=== PATIENT | female | born 2000 | race Caucasian/White ===

== ENCOUNTER 2022-06-02 11:34 | Emergency (ER) | payer OTHER, SELFPAY ==
[2022-06-02 11:44] VITALS: BP 108/70; PULSE 99; RESP 16; TEMP 36.4; O2SAT 99
--- NOTE | 2022-06-02 12:43 | ED.URI ---
HPI - URI/Sore Throat General Chief Complaint: Upper Respiratory Infection Stated Complaint: Sore Throat/Headache Time Seen by Provider: 06/02/22 12:43 Source: patient, RN notes reviewed and old records reviewed Mode of arrival: ambulatory Limitations: no limitations History of Present Illness HPI Narrative: 22 year old female who presents to [facility] accompanied by mother with complaints of sore throat, nasal drainage and congestion, headache, and left earache which started this morning. Patient has not taken any medication for her symptoms. Patient reports no known ill contacts. MD elicited complaint: sore throat, rhinorrhea, nasal congestion and other (left earache and headache) Pertinent past history: asthma Onset (ago): hour(s) (this morning) Pain scale (0-10): 2 Treatments prior to arrival: none Related Data Home Medications Medication Instructions Recorded Confirmed norgestimate 0.25 mg-ethinyl 1 tablet PO DAILY 07/10/20 estradiol 35 mcg tablet (Sprintec (28)) epinephrine 0.3 mg/0.3 mL 0.3 mg IM ONCE 09/13/20 injection, auto-injector Allergies Allergy/AdvReac Type Severity Reaction Status Date / Time shellfish derived Allergy Severe shock Verified 09/13/20 14:13 lemon Allergy Mild Hives / Verified 09/13/20 14:13 Red Face Review of Systems Review of Systems: CONSTITUTIONAL: Denies malaise, chills, sweats, or fever. EYES: Denies visual changes, redness, or discharge. ENT: Reports rhinorrhea, congestion, no sinus pain, left otalgia and sore throat. CARDIOVASCULAR: Denies chest pain, palpitations, or edema. RESPIRATORY: Reports no cough.? Denies dyspnea. GASTROINTESTINAL: Denies abdominal pain, nausea, vomiting, diarrhea SKIN: Denies rash or itching. MUSCULOSKELETAL: Denies myalgia. NEUROLOGIC: Reports headache. All systems reviewed & are unremarkable except as noted in HPI and below PMFSH Past Medical History Medical History (Updated 06/03/22 @ 10:52 by Sneha Prince NP) Asthma Celiac disease Surgical History Surgical History H/O laparoscopy Family History Family History Father Hypertension Mother Leukemia Hypertension Depression Sibling Asthma Hypertension Depression Grandparent Skin cancer Diabetes mellitus Social History Social History Smoking status: Never smoker Alcohol intake: never Substance use: never Living arrangements: with family Gender identity (if verbalized by the patient): Female Comments At time of signature, agree with nursing past medical, surgical, social and family history. There is no relevant family history pertinent to the presenting complaint Exam Narrative: GENERAL: Well-appearing, well-nourished, and in no acute distress. HEAD: Normocephalic EYES: PERRLA, conjunctivae clear ENT: Nares clear, turbinates edematous and erythematous, clear discharge. Mucous membranes moist.Left TM red and bulging, Right TM pearly may with dull light reflex; no tragal tenderness. Oropharynx erythematous without lesions. Tonsils red minimally enlarged and without exudate, no drooling, no hoarseness, no trismus, uvula midline. NECK: Supple. No lymphadenopathy CHEST: Clear to auscultation, breath sounds equal. No wheezing, rhonchi, rales, or stridor. No respiratory distress, speaks in full sentences.SAO2 99% on room air HEART: Regular rate and rhythm. No murmur heard. SKIN: Warm, dry, no rash. NEURO: Alert and oriented x3. PSYCH: Normal mood and affect Course Course Emergency Course: Patient is aware of diagnosis, understands and agrees to treatment plan.? Anticipatory guidance given.? Patient agrees to follow-up as directed and is aware of reasons to seek care at the emergency department. Portions of this record may have been created
== END 2022-06-02 13:02 | disposition home or self-care (01) ==
PROVIDERS: Emergency Provider Registered Nurse; PCP Family Medicine
DX: H66.92 Otitis media, unspecified, left ear (principal); J06.9 Acute upper respiratory infection, unspecified; J45.909 Unspecified asthma, uncomplicated
CPT/HCPCS: 87081; 87880; 99213; G0463

== ENCOUNTER 2022-06-22 18:16 | Emergency (ER) | payer OTHER, SELFPAY ==
--- NOTE | 2022-06-22 18:19 | ED.URI ---
HPI - URI/Sore Throat General Chief Complaint: Upper Respiratory Infection Stated Complaint: cold Time Seen by Provider: 06/22/22 18:26 Source: patient and RN notes reviewed Mode of arrival: ambulatory Limitations: no limitations History of Present Illness HPI Narrative: 22-year-old female presents with concern for 3 week history of sinus congestion, sinus pain, reports some bloody sinus discharge. She reports sore throat. She reports she has been taking Sudafed without relief. MD elicited complaint: sore throat, nasal congestion and sinus pain Related Data Home Medications Medication Instructions Recorded Confirmed norgestimate 0.25 mg-ethinyl 1 tablet PO DAILY 07/10/20 estradiol 35 mcg tablet (Sprintec (28)) epinephrine 0.3 mg/0.3 mL 0.3 mg IM ONCE 09/13/20 injection, auto-injector Allergies Allergy/AdvReac Type Severity Reaction Status Date / Time shellfish derived Allergy Severe shock Verified 09/13/20 14:13 lemon Allergy Mild Hives / Verified 09/13/20 14:13 Red Face Review of Systems Review of Systems: CONSTITUTIONAL: Reports malaise. Denies chills, sweats, or fever. EYES: Denies visual changes, redness, or discharge. ENT: Reports rhinorrhea, congestion, sinus pain, and sore throat. CARDIOVASCULAR: Denies chest pain, palpitations, or edema. RESPIRATORY: Denies cough. Denies dyspnea. GASTROINTESTINAL: Denies abdominal pain, nausea, vomiting, diarrhea SKIN: Denies rash or itching. MUSCULOSKELETAL: Denies myalgia. NEUROLOGIC: Denies headache. All systems reviewed & are unremarkable except as noted in HPI and below PMFSH Past Medical History Medical History (Updated 06/22/22 @ 18:33 by Carmita Bergman NP) Asthma Celiac disease Surgical History Surgical History H/O laparoscopy Family History Family History Father Hypertension Mother Leukemia Hypertension Depression Sibling Asthma Hypertension Depression Grandparent Skin cancer Diabetes mellitus Social History Social History Smoking status: Never smoker Alcohol intake: never Substance use: never Living arrangements: with family Gender identity (if verbalized by the patient): Female Comments At time of signature, agree with nursing past medical, surgical, social and family history. There is no relevant family history pertinent to the presenting complaint Exam Narrative: GENERAL: Well-appearing, well-nourished, and in no acute distress. HEAD: Normocephalic EYES: PERRLA, conjunctivae clear ENT: Nares clear, turbinates edematous and erythematous, sinus tenderness. Mucous membranes moist. TM pearly may with dull light reflex bilaterally; no tragal tenderness. Oropharynx erythematous without lesions. Tonsils not enlarged and without exudate, no drooling, no hoarseness, no trismus, uvula midline. NECK: Supple. No lymphadenopathy CHEST: Clear to auscultation, breath sounds equal. No wheezing, rhonchi, rales, or stridor. No respiratory distress, speaks in full sentences. HEART: Regular rate and rhythm. No murmur heard. SKIN: Warm, dry, no rash. NEURO: Alert and oriented x3. PSYCH: Normal mood and affect Course Course Emergency Course: Patient is aware of diagnosis, understands and agrees to treatment plan. Anticipatory guidance given. Patient agrees to follow-up as directed and is aware of reasons to seek care at the emergency department. Portions of this record may have been created with voice recognition software Level of Care: Express Care Visit Vital Signs Vital signs: Reviewed. MDM - URI/Sore Throat MDM Narrative Medical decision making narrative: Differential diagnosis considered: Noonan virus, strep pharyngitis, allergic rhinitis, upper respiratory tract infection, sinusitis, rhinosinusitis, nasopharyngitis. viral pharyngi
[2022-06-22 18:28] VITALS: BP 111/68; PULSE 73; RESP 16; TEMP 37.1; O2SAT 100
== END 2022-06-22 18:37 | disposition home or self-care (01) ==
PROVIDERS: Emergency Provider Nurse Practitioner; PCP Family Medicine
DX: J01.90 Acute sinusitis, unspecified (principal); J45.909 Unspecified asthma, uncomplicated; K90.0 Celiac disease
CPT/HCPCS: 99213; G0463

== ENCOUNTER 2024-01-05 21:59 | Observation (INO) | payer OTHER, SELFPAY ==
--- NOTE | 2024-01-06 02:07 | OBADM ---
This patient, Liana Clarke, admitted to the OB room Labor/Delivery/Recovery 106 for observation. Patient/family oriented to hospital policies and general routines including ID bracelet, bed and alarms, visiting hours, pain management, procedures, bathroom and other care routines, personal items, smoking policy, room service/diet, and visiting hours. Patient/Family are encouraged to report perceived risks to care and to ask questions if they do not understand what they are told or what they should do.
--- NOTE | 2024-01-07 12:01 | PM.OBTRLD ---
OB - Triage/Final Diagnosis Visit Information Comments/Additional reasons for admission: I have assessed the risk for this patient, Liana Clarke, and determined that she would benefit from observation care. Final Diagnosis (1) False labor: Code(s): O47.9 - False labor, unspecified Status: Acute
== END 2024-01-06 02:01 | disposition home or self-care (01) ==
PROVIDERS: Admitting Provider Obstetrics & Gynecology; PCP Family Medicine; Visit Provider Obstetrics & Gynecology
DX: O47.9 False labor, unspecified (principal); Z3A.00 Weeks of gestation of pregnancy not specified
CPT/HCPCS: G0378; G0379

== ENCOUNTER 2024-01-06 21:51 | Inpatient (IN) | payer OTHER, SELFPAY ==
[2024-01-06] VITALS (25 sets, daily range): BP systolic 123–154; BP diastolic 68–92; PULSE 83–111; TEMP 36.9–37.3; O2SAT 96–99; BMI 32.9
[2024-01-06 22:48] LABS: Basophils Percent Auto 0.2 % (0.2-1.2); Eosinophils Percent Auto 0.2 % (0-4.4); Hematocrit 31.1 % (37.0-47.0); Hemoglobin 10.2 g/dL (12.0-15.0); Immature Granulocyte Absolute 0.07 K/mm3 (0.00-0.031); Immature Granulocyte Percent A 0.5 % (0-0.5); Lymphocytes Absolute Auto 1.64 K/mm3 (0.9-3.2); Lymphocytes Percent Auto 12.5 % (18.3-44.2); Mean Corpuscular HGB Conc 32.8 g/dl (32-36); Mean Corpuscular Hemoglobin 26.8 pg (26-34); Mean Corpuscular Volume 81.6 fl (80-100); Mean Platelet Volume 12.4 fl (7.4-10.4); Monocytes Absolute Auto 0.6 K/mm3 (0.1-0.6); Monocytes Percent Auto 4.2 % (2.6-8.5); Neutrophils Absolute Auto 10.8 K/mm3 (1.3-6.7); Neutrophils Percent Auto 82.4 % (45.5-73.1); Platelet Count Result 341 k/mm3 (150-375); Red Blood Count 3.81 M/mm3 (4.2-5.4); Red Cell Distribution Width 14.8 % (11.5-14.5); White Blood Count 13.1 K/mm3 (4.5-10.0)
--- NOTE | 2024-01-06 22:48 | LDADM ---
This patient, Liana Clarke, was admitted to Labor/Delivery/Recovery 105 on 01/06/24 at 21:51. Plans for labor, pain management and were discussed with patient. Patient/family oriented to hospital policies and general routines including ID bracelet, bed and alarms, visiting hours, pain management, procedures, bathroom and other care routines, personal items, smoking policy, room service/diet and guest tray routines, security routines, and visiting hours. Patient/Family are encouraged to report perceived risks to care and to ask questions if they do not understand what they are told or what they should do. See OBIX for further documentation.
[2024-01-06] MEDS: LACTATED RINGERS 1,000 ML 125 ML IV CONT ×2 (23:00→23:25)
--- NOTE | 2024-01-06 23:05 | WPDANESEPP ---
Anes - Eval Pre Procedure Procedure: labor epidural Date/Time: 01/06/24 23:05 Surgeon: garcia Preop Diagnosis: pain during labor Pre Op Diagnosis: Contractions Patient Data Age: 23 Gender: F Height: 1.63 m Weight: 87 kg Last Vital Signs O2 Del Method Room Air 01/06/24 22:47 Allergies Allergy/AdvReac Type Severity Reaction Status Date / Time shellfish derived Allergy Severe shock Verified 01/06/24 22:55 lemon Allergy Mild Hives / Verified 01/06/24 22:55 Red Face Home Medications Medication Instructions Recorded Confirmed Type norgestimate 0.25 mg-ethinyl 1 tablet PO DAILY 07/10/20 History estradiol 35 mcg tablet (Sprintec (28)) epinephrine 0.3 mg/0.3 mL 0.3 mg IM ONCE 09/13/20 01/06/24 History injection, auto-injector amoxicillin 875 mg-potassium 1 tablet PO Q12H 10 days #20 tabs 06/22/22 Rx clavulanate 125 mg tablet methylprednisolone 4 mg tablets in See Rx Instructions PO .COMPLEX 06/22/22 01/06/24 Rx a dose pack (Medrol (David)) #21 ea Laboratory Tests 01/06/24 22:42 WBC 13.1 H K/mm3 (4.5-10.0) RBC 3.81 L M/mm3 (4.2-5.4) Hgb 10.2 L g/dL (12.0-15.0) Hct 31.1 L % (37.0-47.0) MCV 81.6 fl (80-100) MCH 26.8 pg (26-34) MCHC 32.8 g/dl (32-36) RDW 14.8 H % (11.5-14.5) Plt Count 341 k/mm3 (150-375) MPV 12.4 H fl (7.4-10.4) Immature Gran % (Auto) 0.5 % (0-0.5) Neut % (Auto) 82.4 H % (45.5-73.1) Lymph % (Auto) 12.5 L % (18.3-44.2) [place] % (Auto) 4.2 % (2.6-8.5) Eos % (Auto) 0.2 % (0-4.4) Baso % (Auto) 0.2 % (0.2-1.2) Lymph # (Auto) 1.64 K/mm3 (0.9-3.2) [place] # (Auto) 0.6 K/mm3 (0.1-0.6) Eos # (Auto) 0.0 K/mm3 (0-0.3) Baso # (Auto) 0.0 K/mm3 (0.0-0.1) Abs Immat Gran (auto) 0.07 H K/mm3 (0.00-0.031) Absolute Neuts (auto) 10.8 H K/mm3 (1.3-6.7) Absolute Nucleated RBC 0.000 K/mm3 (0.0-0.012) Nucleated RBC % 0.0 % (0.0-0.2) RPR Pending HIV 1&2 Ab/P24 Ag 4thGn Pending Blood Type Pending Antibody Screen Pending Patient hx anesthesia problems: none Family hx anesthesia problems: none Results Review: All pre-operative results and documents have been reviewed as part of the pre-operative evaluation. FOR[facility], [facility] Past Medical History Medical History (Updated 06/23/22 @ 00:00 by Pretty Olmstead) Asthma Celiac disease Surgical History Surgical History H/O laparoscopy Family History Family History Father Hypertension Mother Leukemia Hypertension Depression Sibling Asthma Hypertension Depression Grandparent Skin cancer Diabetes mellitus Social History Social History Smoking status: Never smoker Alcohol intake: never Substance use: never Do You Feel Safe in your Home?: Yes Lack of Transportation: No Lack of Food: Never True Current Housing: I Have Housing Concerned About Future Housing: No Difficulty Paying Gas/Electric Bills: No Difficulty Paying for Meds: No Currently Unemployed: No Education: Bachelor's Degree Difficulty w/ Childcare or Family Care: No Living arrangements: with family Gender identity (if verbalized by the patient): Female Spiritual care concerns: No Exam Day of Procedure 01/06/24 23:05
[2024-01-06 23:37] LABS: Rapid Plasma Reagin Non-Reactive (NonReactive)
[2024-01-06 23:41] LABS: HIV 1/2 Ab P24 Ag Result Negative (Negative)
[2024-01-07] VITALS (211 sets, daily range): BP systolic 89–155; BP diastolic 53–99; PULSE 73–125; RESP 16–18; TEMP 36.1–36.8; O2SAT 94–100
--- NOTE | 2024-01-07 05:46 | PC.NURSE ---
See paper charting for MAR during meditech downtime
--- NOTE | 2024-01-07 06:42 | PM.IMHP ---
H&P: HPI History of Present Illness Date/Time: 01/07/24 06:42 Chief Complaint: Labor at term Narrative: 23 year left suprasellar known but EDC is 01/12/2024 for 10 ultrasound at 30 weeks gestation in active she spontaneously ruptured 5 3rd and is presently a rim. she is negative for group B strep in her has been uncomplicated PMFSH Past Medical History Medical History Asthma Celiac disease Surgical History Surgical History H/O laparoscopy Family History Family History Father Hypertension Mother Leukemia Hypertension Depression Sibling Asthma Hypertension Depression Grandparent Skin cancer Diabetes mellitus Social History Social History Smoking status: Never smoker Alcohol intake: never Substance use: never Do You Feel Safe in your Home?: Yes Lack of Transportation: No Lack of Food: Never True Current Housing: I Have Housing Concerned About Future Housing: No Difficulty Paying Gas/Electric Bills: No Difficulty Paying for Meds: No Currently Unemployed: No Education: Bachelor's Degree Difficulty w/ Childcare or Family Care: No Living arrangements: with family Gender identity (if verbalized by the patient): Female Spiritual care concerns: No Meds Home Medications and Allergies Home Medications Medication Instructions Recorded Confirmed Type norgestimate 0.25 mg-ethinyl 1 tablet PO DAILY 07/10/20 History estradiol 35 mcg tablet (Sprintec (28)) epinephrine 0.3 mg/0.3 mL 0.3 mg IM ONCE 09/13/20 01/06/24 History injection, auto-injector amoxicillin 875 mg-potassium 1 tablet PO Q12H 10 days #20 tabs 06/22/22 Rx clavulanate 125 mg tablet methylprednisolone 4 mg tablets in See Rx Instructions PO .COMPLEX 06/22/22 01/06/24 Rx a dose pack (Medrol (David)) #21 ea Allergies Allergy/AdvReac Type Severity Reaction Status Date / Time shellfish derived Allergy Severe shock Verified 01/06/24 22:55 lemon Allergy Mild Hives / Verified 01/06/24 22:55 Red Face Vital Signs Vital Signs - 24 hr 01/06/24 22:47 01/06/24 23:10 01/06/24 23:12 Temperature Pulse Rate 97 102 H Respiratory Rate Blood Pressure 129/82 129/83 Pulse Oximetry 96 Oxygen Delivery Room Air 01/06/24 23:14 01/06/24 23:15 01/06/24 23:17 Temperature Pulse Rate 111 H 90 Respiratory Rate Blood Pressure 130/92 H 123/77 Pulse Oximetry 97 Oxygen Delivery 01/06/24 23:20 01/06/24 23:22 01/06/24 23:23 Temperature Pulse Rate 87 84 Respiratory Rate Blood Pressure 137/89 136/82 Pulse Oximetry 97 Oxygen Delivery 01/06/24 23:24 01/06/24 23:25 01/06/24 23:27 Temperature 98.5 F Pulse Rate 99 100 Respiratory Rate Blood Pressure 139/87 131/83 Pulse Oximetry 96 Oxygen Delivery 01/06/24 22:07 01/06/24 23:30 01/06/24 23:31 Temperature 99.2 F Pulse Rate 100 Respiratory Rate Blood Pressure 138/68 Pulse Oximetry 96 98 Oxygen Delivery 01/06/24 23:32 01/06/24 23:34 01/06/24 23:36 Temperature Pulse Rate 102 H 92 Respiratory Rate Blood Pressure 136/84 137/85 Pulse Oximetry 98 Oxygen Delivery 01/06/24 23:37 01/06/24 23:40 01/06/24 23:41 Temperature Pulse Rate 96 95 Respiratory Rate Blood Pressure 154/87 H 133/85 Pulse Oximetry 99 Oxygen Delivery 01/06/24 23:42 01/06/24 23:44 01/06/24 23:46 Temperature Pulse Rate 92 89 Respiratory Rate Blood Pressure 136/82 143/91 H Pulse Oximetry 98 Oxygen Delivery 01/06/24 23:51 01/06/24 23:56 01/07/24 00:00 Temperature Pulse Rate 99 Respiratory Rate Blood Pressure 123/83 Pulse Oximetry 98 98 Oxygen Delivery 01/07/24 00:01 01/07/24 00:06 01/06
[2024-01-07] MEDS: ONDANSETRON INJ 4 MG/2 ML VIAL IV PUSH (10:05)
--- NOTE | 2024-01-07 10:26 | PM.OBPNLAB ---
Pain Control Date/time seen: 01/07/24 10:26 Pain control: tolerating well and epidural Pelvic Exam Dilation (cm): 10 station: 0 Amniotic membrane status: Leaking
[2024-01-07] MEDS: LACTATED RINGERS 1,000 ML 125 ML IV CONT (11:34)
[2024-01-07] MEDS: fentaNYL CITRATE INJ (*CRX) 100 MCG/2 ML VIAL 50 MCG IV PUSH (11:34)
[2024-01-07] MEDS: LIDOCAINE HCL 1% LOCAL INJ 20 ML VIAL (12:23)
[2024-01-07] MEDS: OXYTOCIN 30 UNITS/NS 500 ML 30 UNITS/500 ML BAG 125 UNITS IV CONT (13:00)
--- NOTE | 2024-01-07 13:10 | P.PCNOB_ITS ---
OB - Vaginal Delivery Note Procedure Delivery date: 01/07/24 Induction method: None Delivery monitor: External FHT and External Uterine Route of delivery: Episiotomy description: None Laceration Description: Perineal - 2nd Degree Delivery repair: vicryl Quantitative Blood Loss (ml): 61 Anesthesia type: Local Disposition: Floor Complications: No immediate complications Narrative: patient was admitted in active labor about 2200 hours on 01/06 24. She spontaneously ruptured in the a.m.. She progressive the number for stage of labor her epidural was not working well she delivered the head spontaneously in the VITALY position the anterior posterior shoulder delivered quickly. Cord clamped x2 and cut the infant given Apgars of 9 and 9. Placenta delivered intact spontaneously. Twenty of Pitocin placed IV of from uterus after speculum sidewall small second-degree midline laceration was noted closed with layered 3- 0 Vicryl Q BL was was 61cc. Mom and baby are doing fine at the time dictation. There were no immediate complications [place] Baby Date of : 01/07/24 Time of : 12:17 Gestational Age by Date: 39 Infant gender: Male presentation: vertex position: Right Occiput Anterior Placenta delivery description: Spontaneous Cord Vessel Description: 3 Vessels score one minute: 9 score five minutes: 9
--- NOTE | 2024-01-07 13:13 | PM.DS ---
DS: Admitting Diagnosis Discharge Date 01/09/24 <Yeimy Garcia MD - Last Filed: 01/09/24 09:44> Admitting Diagnosis term <Hussain Gold MD - Last Filed: 01/07/24 13:15> DS: Discharge Diagnosis Discharge Diagnosis (1) False labor: Code(s): O47.9 - False labor, unspecified <Hussain Gold MD - Last Filed: 01/07/24 13:15> Status: Acute <Hussain Gold MD - Last Filed: 01/07/24 13:15> DS: Summary Hospital Course Reason for hospitalization: patient was admitted in active labor on 01/06/2024 [id number] she spontaneously delivered male at 12:17 p.m. p.m. on 01/07/2024. <Hussain Gold MD - Last Filed: 01/07/24 13:15> Hospital Course: Patient's hospital course. She remained afebrile. She was up, voiding without difficulty, eating regular diet, ambulating, and generally without complaints. <Hussain Gold MD - Last Filed: 01/07/24 13:15> Time Spent with Patient Time attestation: Total time spent providing and/or coordinating discharge services: <Hussain Gold MD - Last Filed: 01/07/24 13:15> Exam Const: General: cooperative, healthy appearing and comfortable <Hussain Gold MD - Last Filed: 01/07/24 13:15> Nutritional Appearance: average body habitus <Hussain Gold MD - Last Filed: 01/07/24 13:15> Orientation/consciousness: oriented to person, oriented to place and oriented to time <Hussain Gold MD - Last Filed: 01/07/24 13:15> HENMT: Head: normal to inspection <Hussain Gold MD - Last Filed: 01/07/24 13:15> Resp: Effort & Inspection: normal respiratory effort <Hussain Gold MD - Last Filed: 01/07/24 13:15> Cardio: Rate: regular rate <Hussain Gold MD - Last Filed: 01/07/24 13:15> Rhythm: regular rhythm <Hussain Gold MD - Last Filed: 01/07/24 13:15> Heart sounds: S1 normal heart sound present and S2 normal heart sound present <Hussain Gold MD - Last Filed: 01/07/24 13:15> GI: Inspection: normal to inspection <Hussain Gold MD - Last Filed: 01/07/24 13:15> DS: Data Data Completed and Pending Labs on day of discharge: Labs from last 24 hours 01/06/24 22:42 WBC 13.1 H RBC 3.81 L Hgb 10.2 L Hct 31.1 L MCV 81.6 MCH 26.8 MCHC 32.8 RDW 14.8 H Plt Count 341 MPV 12.4 H Immature Gran % (Auto) 0.5 Neut % (Auto) 82.4 H Lymph % (Auto) 12.5 L [place] % (Auto) 4.2 Eos % (Auto) 0.2 Baso % (Auto) 0.2 Lymph # (Auto) 1.64 [place] # (Auto) 0.6 Eos # (Auto) 0.0 Baso # (Auto) 0.0 Abs Immat Gran (auto) 0.07 H Absolute Neuts (auto) 10.8 H Absolute Nucleated RBC 0.000 Nucleated RBC % 0.0 RPR Non-reactive HIV 1&2 Ab/P24 Ag 4thGn Negative Blood Type A Positive Antibody Screen Negative <Hussain Gold MD - Last Filed: 01/07/24 13:15> Discharge Plan Discharge Attending physician on discharge: Hussain Phillips <Hussain Gold MD - Last Filed: 01/07/24 13:15> Hussain Phillips <Yeimy Garcia MD - Last Filed: 01/09/24 09:44> Discharging Clinician: Yeimy Garcia <Hussain Gold MD - Last Filed: 01/07/24 13:15> Yeimy Garcia <Yeimy Garcia MD - Last Filed: 01/09/24 09:44> Patient Disposition: Home, Self-Care <Hussain Gold MD - Last Filed: 01/07/24 13:15> Activity: may shower, no straining and pelvic rest <Hussain Gold MD - Last Filed: 01/07/24 13:15> may shower, no straining and pelvic rest <Yeimy Garcia MD - Last Filed: 01/09/24 09:44> Diet: heart healthy <Hussain Gold MD - Last Filed: 01/07/24 13:15> heart healthy <Yeimy Garcia MD - Last Filed: 01/09/24 09:44> Wound Care Instructions: follow printed instructions <Hussain Gold MD - Last Filed: 01/07/24 13:15> follow printed instructions <Yeimy
--- NOTE | 2024-01-07 13:30 | PC.NURSE ---
Introductions were made, then consulted with patient to assess needs related to . Mother led the conversation with her?plans to feed?her infant and the?experience so far. In her own words, Liana isn't bound and determined to breastfeed. Mom's nipples are flat and her breast tissue is very firm and hard to make into a bite for baby. Encouraged understanding of holding her breast so baby can maintain the latch. We also discussed possible need for the nipple shield if baby isn't able to maintain latch at the next few feedings. Mother knows she has the option to use the shield and that it may make easier for her, but that we would recommend pumping with the use of the shield. Mom also knows that if she tries the shield and decides it's not for her, she can tell us any time and we can make a new plan. Reviewed positioning and ear, shoulder, hip alignment, supporting the breast to facilitate a deep latch, asymmetrical latch (off-center), leading with the chin with a big, open, wide gape and body close to mother. Infant latched optimally to the [left] breast in [cross cradle] position. Infant was [unable] to maintain latch without losing suction. He suckled off and on with maximum assistance for 5 minutes or so. Discussed with mom to ask for assistance with next feeding so we know if she wants to try the shield or not. Parents voiced understanding of information, demonstrated learning and will call if there is a request for assistance. Reported to the Primary RN.
[2024-01-07] MEDS: WITCH HAZEL 40 PADS 1 PAD TOPICAL (14:05)
[2024-01-07] MEDS: BENZOCAINE 20% AER SPR (*SP) 56 GM CAN 1 SPRAY TOPICAL (14:05)
[2024-01-07] MEDS: ACETAMINOPHEN 325 MG TABLET 650 MG PO (19:50)
[2024-01-08 04:18] LABS: Hematocrit 23.1 % (37.0-47.0); Hemoglobin 7.5 g/dL (12.0-15.0)
[2024-01-08 04:40] VITALS: BP 103/66; PULSE 84; RESP 18; TEMP 36.5
[2024-01-08] MEDS: IBUPROFEN 600 MG TABLET PO ×3 (04:46→20:37)
--- NOTE | 2024-01-08 09:04 | WPDANLDPN2 ---
Anes-Prog Note L&D Date/Time: 01/08/24 09:04 Comfortable throughout: labor and delivery Neuraxial method: epidural Epidural/Spinal procedure site: clean & non-tender Neuro status: Neuro function grossly intact. Cardiovascular status: normal Respiratory status: normal Airway patency: baseline Mental status: baseline Post-Op hydration status: normal Vital Signs: Last Vital Signs Temp 36.5 C 01/08/24 04:40 Pulse 84 01/08/24 04:40 Resp 18 01/08/24 04:40 BP 103/66 01/08/24 04:40 Pulse Ox 95 01/07/24 12:17 O2 Del Method Room Air 01/07/24 19:50 Pain score (VAS): 2/10 Post-procedural complaints: none Patient feedback: Patient satisfied with anesthetic care.
--- NOTE | 2024-01-08 10:24 | PM.OBPNVD ---
OB - PN: Subj Subjective Date/time seen: 01/08/24 10:24 Patient comments: no complaints and pain well controlled baby status: doing well OB - PN: Obj Data Labs 01/08/24 04:13 Labs: Laboratory Results - last 24 hr 01/08/24 04:13 Hgb 7.5 L Hct 23.1 L OB - PN A/P Plan day: 1 Plan: routine care Time Spent With Patient Time: Total time spent is greater than 50% in coordination of care (as documented) at patient's floor/unit and/or counseling patient: Exam : Bimanual exam- vagina & uterus: other (Uterus firm, nt @U)
[2024-01-08 10:40] VITALS: BP 118/68; PULSE 87; RESP 16; TEMP 36.4
[2024-01-08] MEDS: DOCUSATE SODIUM 100 MG CAPSULE PO ×2 (10:42→16:18)
[2024-01-08] MEDS: POLYSACCHARIDE IRON COMPLEX 150 MG CAPSULE PO ×2 (10:42→16:17)
[2024-01-08 19:00] VITALS: BP 104/65; PULSE 84; RESP 18; TEMP 36.4
[2024-01-09 07:48] VITALS: BP 115/69; PULSE 67; RESP 18; TEMP 36.9; O2SAT 98
[2024-01-09] MEDS: POLYSACCHARIDE IRON COMPLEX 150 MG CAPSULE PO (09:03)
--- NOTE | 2024-01-09 09:42 | PM.OBPNVD ---
OB - PN: Subj Subjective Date/time seen: 01/09/24 09:42 Patient comments: no complaints and pain well controlled baby status: doing well OB - PN: Obj Data Labs 01/08/24 04:13 OB - PN A/P Plan day: 2 Plan: routine care and discharge home Time Spent With Patient Time: Total time spent is greater than 50% in coordination of care (as documented) at patient's floor/unit and/or counseling patient: Exam : Bimanual exam- vagina & uterus: other (Uterus firm, nt @U)
[2024-01-09] MEDS: INFLUENZA TRIVALENT VACCINE 45 MCG/0.5 ML SYRINGE IM (10:27)
[2024-01-10 09:17] VITALS: BP 117/78; PULSE 92; RESP 18; TEMP 36.8; O2SAT 99
== END 2024-01-09 10:45 | disposition home or self-care (01) | DRG 807 ==
LOC: ANHLDR 01-07 13:15 → ANHOB2 01-07 15:41
PROVIDERS: Admitting Provider Obstetrics & Gynecology; PCP Family Medicine; Visit Provider Obstetrics & Gynecology
DX: O70.1 Second degree perineal laceration during delivery (principal); Z37.0 Single live birth; Z3A.39 39 weeks gestation of pregnancy; Z23 Encounter for immunization
CPT/HCPCS: 36415; 85014; 85018; 85025; 86592; 86703; 86850; 86900; 86901; 90471; 90656; A9270; G0008; G0378; G0379; G0432; J2405; J2590; J2795; J3010; J7120

== ENCOUNTER 2024-06-27 17:01 | Emergency (ER) | payer OTHER, SELFPAY ==
[2024-06-27 17:05] VITALS: BP 117/72; PULSE 94; RESP 20; TEMP 36.8; O2SAT 98
--- NOTE | 2024-06-27 17:14 | ED.FEMALEGU ---
HPI - Female Genitourinary General Chief complaint: Urogenital-Female Stated complaint: Poss UTI Source: patient and RN notes reviewed Mode of arrival: ambulatory Limitations: no limitations History of Present Illness HPI Narrative: [age] year old female presented for complaint of burning urination, frequency and urgency. Onset yesterday morning. Denies hematuria, nausea, vomiting, abdominal pain, flank pain, constipation, diarrhea, fevers or chills. Patient is 5 months , she is not . Denies concern for or std. Related Data Allergies Allergy/AdvReac Type Severity Reaction Status Date / Time shellfish derived Allergy Severe shock Verified 06/27/24 17:09 lemon Allergy Mild Hives / Verified 06/27/24 17:09 Red Face nickel Allergy Unknown Unknown Verified 06/27/24 17:09 Review of Systems Review of Systems: CONSTITUTIONAL: Denies body aches, fever, chills, or sweats. CARDIOVASCULAR: Denies chest pain, palpitations, or edema. RESPIRATORY: Denies cough or dyspnea. GASTROINTESTINAL: Denies abdominal pain, nausea, vomiting, or diarrhea. GENITOURINARY: Reports dysuria, frequency, urgency,denies hematuria, flank pain SKIN: Denies rash, itching, or wounds. MUSCULOSKELETAL: Denies back pain or myalgia. [facility] Past Medical History Medical History Asthma Celiac disease Surgical History Surgical History H/O laparoscopy Family History Family History Father Hypertension Mother Leukemia Hypertension Depression Sibling Asthma Hypertension Depression Grandparent Skin cancer Diabetes mellitus Social History Social History Smoking status: Never smoker Alcohol intake: never Substance use: never Do You Feel Safe in your Home?: Yes Lack of Transportation: No Lack of Food: Never True Current Housing: I Have Housing Concerned About Future Housing: No Difficulty Paying Gas/Electric Bills: No Difficulty Paying for Meds: No Currently Unemployed: No Education: Bachelor's Degree Difficulty w/ Childcare or Family Care: No Living arrangements: with family Gender identity (if verbalized by the patient): Female Spiritual care concerns: No Comments At time of signature, I have reviewed and agree with nursing past medical, surgical, social and family history unless otherwise noted. Please see nursing chart for further information. There is no relevant family history pertinent to the presenting complaint Exam Narrative: GENERAL: Well-appearing ENT: Mucous membranes pink and moist. NECK: Normal AROM. Supple. CHEST: No respiratory distress. Clear to auscultation. HEART: Regular rate and rhythm. ABDOMEN: Soft, nontender, nondistended, normal active bowel sounds. No CVA tenderness SKIN: Warm, dry, no rash. NEURO: No focal deficits. Alert and oriented x3. Gait steady. PSYCH: Normal affect. Course Course Emergency Course: Patient is aware of diagnosis, understands and agrees to treatment plan. Anticipatory guidance given. Patient agrees to follow-up as directed and is aware of reasons to seek care at the emergency department. Portions of this record may have been created with voice recognition software Level of Care: Express Care Visit Vital Signs Vital signs: Vital Signs Temperature 98.2 F 06/27/24 17:05 Pulse Rate 94 06/27/24 17:05 Respiratory Rate 20 06/27/24 17:05 Blood Pressure 117/72 06/27/24 17:05 Pulse Oximetry 98 06/27/24 17:05 Oxygen Delivery Room Air 06/27/24 17:05 Temperature 98.2 F 06/27/24 17:05 Pulse Rate 94 06/27/24 17:05 Respiratory Rate 20 06/27/24 17:05 Blood Pressure 117/72 06/27/24 17:05 Pulse Oximetry 98 06/27/24 17:05 Oxygen Delivery Room Air 06/27/24 17:05 Reviewed MDM - Female Genitourinary MDM Narrative Medical decision making narrative: Discussed physical exam findings. Advised supportive measures and signs/symptoms to go to the ER. Pt is appropriate for outpt treatment and f/u. Differential Diagnosis Differential diagnosis: Likely urinary tract infection, vaginitis, cystitis and other Discharge Plan Discharge Clinical Impression: Dysuria Patient Disposition: Home, Self-Care Condition: Stable Instructions: Antibiotic Form, Urinary Tract Infection in Women (ED) Additional Instructions: Take the antibiotic as prescribed The urine will be sent of for a culture to identify what type of bacteria is causing your infection. If the culture shows that the antibiotic will not get rid of your infection, you will be notified and a new antibiotic will be called in for you. Increase water intake you will need to follow up with your PCP, call to schedule an appointment. Go to the ER for any worsening symptoms or concerns Patient Language: Urdu Prescriptions: New nitrofurantoin monohyd/m-cryst [Macrobid] 100 mg capsule 100 mg PO Q12H 5 Days Qty: 10 0RF Rx Instructions: must administer with a meal/food Follow-up/Referrals: PHYSICIAN,APPLICATION SOFTWARE ENGINEER [Primary Care Provider] - Time of Disposition: 17:21
[2024-06-27 17:20] LABS: EDUAAPPEAR Cloudy; EDUABILI Negative (Negative); EDUABLOOD 1+ (Negative); EDUACOLOR1 Yellow; EDUAGLUCOSE Negative (Negative); EDUAKETONE Negative (Negative); EDUALEUKO 1+ (Negative); EDUANITRATE Negative (Negative); EDUAPROTEIN 2+ (Negative); EDUASPGRAVITY 1.025; EDUAUROBILI 0.2
--- OUTSIDE RECORDS SUMMARY | 2024-06-27 18:05 | XMS_ITS | Referral Summary ---
Author Organization [facility] Address [address] [place] [address] Care Team Providers Care [employer] Maker Name Role Phone Skye Shay DO Primary Care Provider [phone] Allergies Active Allergy Reactions Criticality Noted Date Comments Lemon Rash Medium 10/30/2017 Shellfish Containing Products Anaphylaxis High 10/30 Medications Sprintec, 28, 0.25-35 mg-mcg per tablet Take 1 tablet by mouth daily 0 Active doxycycline hyclate 50 mg tablet Take 1 tablet by mouth 2 (two) times a day 3 Active metroNIDAZOLE (METROGEL) 0.75 % gel Apply 45 Applications topically 2 (two) times a day 3 Active Active Problems Problem Noted Date Diagnosed Date Celiac disease in pediatric patient 09/07/2019 Resolved Problems Problem Noted Date Diagnosed Date Resolved Date 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 Social History Tobacco Use Types Packs/Day Years Used Date Smoking Tobacco: Never Tobacco Cessation:Counseling Given: Not Answered Personal Safety Answer Date Recorded Getting School Help Needed Not on file 05/01 Comments Unknown Sex and Gender Information Value Date Recorded Sex Assigned at Not on file Legal Sex Female 6:42 AM UR COORDINATOR Gender Identity Female 09/01/2019 4:33 PM CDT Sexual Orientation Straight 09/01/2019 4: 33 PM CDT Last Filed Vital Signs Vital Sign Reading Time Taken Comments Blood Pressure 114/73 01/07/2023 8:16 AM CDT Pulse 81 01/07/2023 8:16 AM CDT Temperature 36.9 C (98.5 F) 01/07/2023 8:16 AM CDT Respiratory Rate 22 01/07/2023 8:16 AM CDT Oxygen Saturation 100% 01/07/2023 8:16 AM CDT Inhaled Oxygen Concentration - - Weight 65.5 kg (144 lb 6.4 oz) 01/07/2023 8:16 A M CDT Height 162.5 cm (5' 3.98 ) 01/07/2023 8:16 AM CD T Body Mass Index 24.8 01/07/2023 8:16 AM CDT Plan of Treatment Not on file Insurance [employer] Advance Directives For more information, please contact: [phone] * Full Code (Latest Code Status on File) Date Activated Date Inactivated Comments 10/31/2017 12:50 AM 10/31/2017 5:59 PM Care Teams [employer] Maker Relationship Specialty Start Date End Date Skey Shay DO PCP - General Family Medicine 08/25/21
--- OUTSIDE RECORDS SUMMARY | 2024-06-27 18:05 | XMS_ITS | Data Portability ---
Author Organization [facility] Address [address] [place] [address] Assessment Encounter Date Assessment Date Assessment LastModified by Organization Details LastModified Time 09/12/2019 09/12/2019 Annual gynecological exam performed. Patient will come back in a year unless there are new symptoms. Annual gynecological exam performed. Patient will come back in a year unless there are new symptoms. [email or web address] Not available 09/12/2019 10:05:59 Plan of Treatment Reminders Order Date Submit Date Provider Last Modified By Organization Details Last Modified Time Details Appointments None recorded. Lab None recorded. Referral None recorded. Procedures None recorded. Surgeries None recorded. Imaging None recorded. Medication Orders Sprintec (28) 0.25 mg-0.035 mg tablet 2019 020 INTERFACE [facility] [address] [place] [address], [id number], 0 10:11:11 Patient TargetsNo targets recorded. Patient InstructionsNo instructions recorded. Reason for Referral None Reported. 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 (general) (routine) w/o abn findings;Pr actice ID: [id number] Not Available [facility] 0 16:04:53 Surveillan ce of contracept ion Active 2017 Encounter for surveillanc e of contracepti ves, unspecified ;Practice ID: [id number] Not Available [facility] 0 16:04:[address] Concept Active 2018 Well woman check w/ abnormal finding;Rec orded Elsewhere: No Location : [facility] Sour ce: EHR Chronic : N Practice ID: [id number] Billab le Time: 03:30:00 PM Not Available [facility] 0 16:04:[address] Concept Active 2017 Encntr for routine child health exam w/o abnormal findings;Re corded Elsewhere: No Location : [facility] Sour ce: EHR Chronic : N Practice ID: [id number] Bill[place] le Time: 02:45:00 PM Not Available [facility] 0 16:04:53 Problem Notes None recorded. Medical Equipment None Reported. Allergies Allergen ID Allergen Name Allergen Category Reaction Reaction Severity Criticality Documentation Date Start Date Code Code System Note Provider Name and Address Organization Details Recorded Time 818 shellfish derived food,medi cation Not available Not available Not available 09/12/2019 [id number] ZENA Doty [place], [place] - [facility] 0 10:03:53 Medications Name Sig Start Date Stop Date Status Note LastModified by Organization Details LastModified Time sprintec 28 tab 28 day active Not Available Not Available Not Available Sprintec (28) 0.25 mg-0.035 mg tablet Take 1 tablet every day by oral route for 90 days. 020 active Not Available Not Available Not Avai lable Vitals None Recorded Social History None recorded. Functional Status None recorded. Mental Status None recorded. Family History Nothing Reported Notes:Father: Hypertension M other: Anemia, Hypertension, Infertility Paternal grandfather: Diabetes mellitus Medical History No medical history recorded. Gynecological History Statement/Question Response Current Control Method BCPs Date of LMP 09/05/2019 Obstetrics History GPAL:G 0 P 0 0 0 0 Past Encounters Encounter ID Performer Location Encounter Start Date Encounter Closed Date Diagnosis/Indication Diagnosis SNOMED-CT Code Diagnosis ICD10 Code Diagnosis Note [id number] Felicia Winkler [facility] [address] [address] 09/12/2019 09:53:33 09/12/2019 10:22:28 Gynecologic examination 00340966 Z01.419 Z30.8 Take Calcium with Vitamin D 1200mg daily if not receiving in daily diet. It is strongly advised to have an annual flu shot and up can obtain at most pharmacies . If you have not had a TDap shot in the last 10 years you should obtain one as well. Discussed with patient & provided with informatio n regarding Gardisil vaccine to prevent the 4 strains for HPV that cause cervical cancer. Encourage safe sexual practices, to use condoms and limit partners if not already in a monogamous relationsh ip. Do monthly self breast exams. BRCA testing is now available for patients with strong genetic history of female cancer. If interested contact the office. Engage in daily exercise of low impact aerobic exercise 45-60 minutes 4-5 times weekly. Avoid tobacco, illicit drugs, and alcohol. This lifestyle behavior pattern will lead to less health conditions and longer life span. If BMI greater than 25 weight watchers or dietary consult advised. Pap smear is not recommende d prior to the age of 21. If you have any concerns, pelvic, or vaginal problems we can discuss testing. Patient received above instructio ns, and questions have been answered. If you have any questions please call or respond to this email. Patient was made aware of the patient portal and may obtain a paper copy of today's plan if desired. Phone Consent: This visit was completed via Virtual Visit Zoom due to the restrictio ns of the COVID-19 pandemic; all issues as below were discussed and addressed but no physical exam was performed. If it was felt that the patient should be evaluated in clinic then they were directed there. The patient verbally consented to this virtual Zoom visit. Total time of virtual-ZO OM visit was approx 15 mins with >50% consisting of counseling , education of patient's plan of care. Health Concerns Section Related Observation LastModified by Organization Detai ls LastModified Time None Recorded Concern Status LastModified by Organization Details LastModified Time None Recorded Advance Directives Directive None Recorded Payers Encounter Date Sequence Insurance Name Policy Number Policy Brandt Covered Member ID Brandt Member ID Guarantor Name 09/12/2019 1 [facility] Fer Wheeler [id number] Notes Date Note Type Note Provider Name and Address Organization Details Recorded Time 09/12/2019 text/html Annual GYNReport ed bypatient.History: no gynecologic complaints Menstrual cycle:Normal menses Urinary symptoms:No hematuria; No incontinence Vulva:No genital lesion Vagina:Normal vaginal discharge Breast:No breast pain; No breast lump; No nipple discharge Current Contraception:Sati sfied with current contraception; Oral contraceptives; Not sexually active Sexual complaints:No sexual complaints; No pain during intercourse; Normal libido Menopausal Symptoms:No menopausal symptoms; Normal vaginal lubrication Psychological symptoms:No depression; No anxiety; No PMDD Preventive measures:Encourage self breast examination; Encourage regular exercise; Encourage no tobacco use Felicia Winkler PATR[facility]- [address], [place], [address], [facility] 09/12/2019 10:11:26 OBGyn Episode No OBEpisode recorded.
--- OUTSIDE RECORDS SUMMARY | 2024-06-27 18:05 | XMS_ITS | Data Portability ---
Author Organization [facility] Address [address] [place] [address] Care Team Providers Care Web Press Operator Assistant Name Role Phone LUCERO VALENZUELA Primary Care Provider [phone] Assessment No assessment recorded. Plan of Treatment Reminders Order Date Submit Date Provider Last Modified By Organization Details Last Modified Time Details Appointments None recorded. Lab PPD (purified protein derivativ e), skin test RADHA In-Office Order, Internal Use Only DO Not Attach Compendium DO Not Attach Compendium, Do Not Delete/merge, [id number] 12:19:31 Referral None recorded. Procedures None recorded. Surgeries None recorded. Imaging None recorded. Medication Orders None recorded. Patient TargetsNo targets recorded. Patient Instructions Encounter Date Encounter Id Patient Instructions Last Modified By Organization Details Last Modified Time 09/30/2017 [id number] program - 5 fruits & veggies jnanney Not available 09/30/2017 15:38:55 10/18/2018 [id number] program - 5 fruits & veggies jnanney Not available 10/18/2018 12:24:11 celiac disease i n children: care instructions jnanney Not available 10/18/2018 12:24:11 07/05/2020 [id number] gluten-free diet : care instructions jnanney Not available 07/05/2020 15:27:55 03/10/2022 [id number] tetanus and diphtheria booster: care instructions jnanney Not available 03/10/2022 16:10:12 Reason for Referral None Reported. Results Created Date Observation Date Name Description Value Unit Range Abnormal Flag Note LastModifiedBy Organization Detail LastModifiedTime 02/12/20 22 02/11/2022 PPD (morris fied prote in deriv ative ), skin test Result Negati ve Not Available In-Office Order Internal Use Only DO Not Attach Compendium DO Not Attach Compendium, Do Not Delete/merge, [id number] 02/09/2022 12:22:19 Result Notes None recorded. Problems Name Problem SNOMED Code Status Onset Date Resolution Date Notes Provider Name and Address Organization Details Recorded Time Prepatellar bursitis 32557010 Active Yuli Noble [place] null, [place] - [facility] 6 12:05:53 Problem Notes None recorded. Procedures Surgical History Date Name Laterality Status Provider Name and Address Organization Details Recorded Time 04/12/2017 endoscopy completed Brittani He [place] [facility] 07/05/2020 15:05:06 Imaging Results None recorded. Procedure Notes None recorded. Medical Equipment None Reported. Allergies Allergen ID Allergen Name Allergen Category Reaction Reaction Severity Criticality Documentation Date Start Date Code Code System Note Provider Name and Address Organization Details Recorded Time 74662 shellfish derived food,medi cation rash Not available Not available 08/23/2014 27447 UNK Not Available Not Available Not Available Medications Name Sig Start Date Stop Date Status Note LastModified by Organization Details LastModified Time doxycycline hyclate 100 mg capsule TAKE 1 CAPSULE BY MOUTH TWICE DAILY. TAKE WITH FOOD AND NOT AT BEDTIME active Not Available Not Available No t Available triamcinolo ne acetonide 0.1 % topical cream 07/05 completed Not Available Not Available Not Available malathion 0.5 % lotion 09/25 completed Not Available Not Available Not Available cephalexin 500 mg capsule TAKE ONE CAPSULE BY MOUTH TWICE DAILY active Not Available Not Available No t Available Nix Creme Rinse 1 % topical liquid Apply 60 mL as needed by topical route as directed for 1 day. 10/07 completed Not Available Not Available Not Available metronidazo le 0.75 % topical gel APPLY TOPICALLY TO FACE TWICE DAILY active Not Available Not Available No t Available azithromyci n 500 mg tablet Take 1 tablet every day by oral route for 3 days. 07/05 completed Not Available Not Available Not Available Sprintec (28) 0.25 mg-0.035 mg tablet TAKE 1 TABLET BY MOUTH ONCE DAILY active Not Available Not Available No t Available EpiPen 2-David 0.3 mg/0.3 mL injection, auto-inject or active Not Available Not Available Not Available EpiPen Jr 2-David 0.15 mg/0.3 mL injection,a uto-injecto r Take 1 auto by injection route as needed. 10/07 completed Not Available Not Available Not Available doxycycline hyclate 50 mg tablet TAKE 1 TABLET BY MOUTH TWICE DAILY active Not Available Not Available No t Available ID NOW COVID-19 Test Kit TEST DIRECTED TODAY active Not Available Not Available No t Available Vitals Date Recorded Body height Body mass index (BMI) Body weight Oxygen saturation Oxygen saturation in Arterial blood by Pulse oximetry Heart rate Systolic blood pressure Diastolic blood pressure Provider Name and Address Organization Details Last Updated DateTime 8 133.98 cm 34.3 kg/m2 99990.1 3 g 98 % 98 % 81 /min 104 mm[Hg] 62 mm[Hg] Ena Freeman [place] - [facility] 8 15:14:18 Date Recorded Body height Body mass index (BMI) Percentile per age and sex Body mass index (BMI) Body weight Oxygen saturation Oxygen saturation in Arterial blood by Pulse oximetry Heart rate Systolic blood pressure Diastolic blood pressure Provider Name and Address Organization Details Last Updated DateTime 9 161.29 cm 77 % 23.9 kg/m2 09442.1 5 g 98 % 98 % 78 /min 116 mm[Hg] 78 mm[Hg] Yuli Noble [place] - [facility] 9 11:44:31 Date Recorded Body temperature Heart rate Oxygen saturation Oxygen saturation in Arterial blood by Pulse oximetry Body weight Body height Body mass index (BMI) Body mass index (BMI) Percentile per age and sex Systolic blood pressure Diastolic blood pressure Provider Name and Address Organization Details Last Updated DateTime 1 98.2 [degF] 94 /min 99 % 99 % 99853.8 5 g 160.02 cm 22 kg/m2 55 % 98 mm[Hg] 78 mm[Hg] Brittani He [place] [facility] 1 15:09:51 Date Recorded Body weight Body height Body mass index (BMI) Body mass index (BMI) Percentile per age and sex Body temperature Oxygen saturation Oxygen saturation in Arterial blood by Pulse oximetry Heart rate Systolic blood pressure Diastolic blood pressure Provider Name and Address Organization Details Last Updated DateTime 2 86746.3 4 g 160.02 cm 24.6 kg/m2 75 % 97.4 [degF] 99 % 99 % 110 /min 112 mm[Hg] 74 mm[Hg] Mandi archer MA [facility] 12:14:45 Social History Question Answer Notes LastModified by Organizat ion Details LastModified Time Tobacco Smoking Status Never Smoker Mandi Page MA null, [place] - [facility] 08/23/2014 10:37:31 What Is Your Level Of Alcohol Consumption? None Information not available 07/05/2020 Are You Blind Or Do You Have Difficulty Seeing? No Information not available 07/05/2020 What Is Your Level Of Caffeine Consumption? Heavy Information not available 02/09/2022 In The 14 Days Before Symptom Onset, Have You Had Close Contact With A Laboratory-confir med COVID-19 While That Case Was Ill? No Information not available 07/05/2020 In The 14 Days Before Symptom Onset, Have You Had Close Contact With A Person Who Is Under Investigation For COVID-19 While That Person Was Ill? No Information not available 07/05/2020 Have You Been To An Area Known To Be High Risk For COVID-19? No Information not available 07/05/2020 Are You Currently Employed? Yes Information not available 02/09/2022 Are You Deaf Or Do You Have Serious Difficulty Hearing? No Information not available 07/05/2020 What Type Of Diet Are You Following? GLUTENFREE Information not available 07/05/2020 What Is Your Occupation? [employer] Information not available 02/09/2022 What Was The Date Of Your Most Recent Tobacco Screening? 02/09/2022 Information not available 02/09/2022 What Is Your Relationship Status? Single Information not available 07/05/2020 Do You Use Your Seat Belt Or Car Seat Routinely? Yes Information not available 07/05/2020 Do You Have Smoke And Carbon Monoxide Detectors In Your Home? Yes Information not available 02/09/2022 Are You Passively Exposed To Smoke? No Information no t available 02/09/2022 Do You Feel Stressed (tense, Restless, Nervous, Or Anxious, Or Unable To Sleep At Night)? MY5279-5 Information not available 02/09/2022 Do You Use Any Illicit Or Recreational Drugs? No Information not available 07/05/2020 Sex: Female Functional Status Question Answer Note LastModified by Organization D etails LastModified Time Are you able to care for yourself? Yes Information not available 07/05/2020 What is your exercise level? Moderate Information not available 07/05/2020 Mental Status None recorded. Family History Relationship Description Onset Age of this Age Resolved Age Notes LastModified by Organization Details LastModified Time Mother Anxiety Not availab le 10/08/2015 12:05:53 Mother Asthma Not availabl e 10/08/2015 12:05:53 Mother Hypertensive disorder Not available 09/11 12:05:53 Brother Asthma Not availab le 10/08/2015 12:05:53 Notes:luekemia-mom Medical History Condition Response Other Y Asthma Y Allergies Y Gynecological History Statement/Question Response Date of Last Pap Smear Age at Menarche 12 Current Control Method BCPs Date of LMP 02/09/2022 LMP Definite On BCP's at Conception? Y Obstetrics History GPAL:G 0 P 0 0 0 0 Immunizations Vaccine Type Date Status Note Provider Nam e and Address Organization Details Recorded Time Hep A, ped/adol, 2 dose 2 completed Niki Rob[place], [place] [facility] 11/24/2023 13:21:53 DTaP, unspecified formulation 2 completed [place] [facility] 11/24/2023 13:21:53 DTaP, unspecified formulation 3 completed [place] [facility] 11/24/2023 13:21:53 DTaP, unspecified formulation 2 completed [place] [facility] 11/24/2023 13:21:53 DTaP, unspecified formulation 2 completed [place] [facility] 11/24/2023 13:21:53 DTaP, unspecified formulation 7 completed [place] [facility] 11/24/2023 13:21:53 Influenza, split virus, quadrivalent, PF 0 [place] [facility] 11/24/2023 13:21:53 Meningococcal MCV4O 9 completed Not Available [facility] 02:38:04 Hep B, adult 1 [place] [facility] 07/05/2020 15:36:42 Tdap 2 [place] [facility] 03/10/2022 16:11:05 DTP 2 [place] [facility] 01/20/2018 14:23:25 DTP 2 [place] [facility] 01/20/2018 14:23:33 DTP 2 [place] [facility] 01/20/2018 14:23:38 DTP 3 [place] [facility] 01/20/2018 14:23:47 DTP 7 [place] [facility] 01/20/2018 14:23:52 Hib, unspecified formulation 2 completed [place] [facility] 01/20/2018 14:24:15 Hib, unspecified formulation 2 completed [place] [facility] 01/20/2018 14:24:22 Hib, unspecified formulation 2 completed [place] [facility] 01/20/2018 14:24:27 Hep A, unspecified formulation 7 completed Ena Freeman[place] [facility] 01/20/2018 14:24:42 Hep A, unspecified formulation 2 completed Niki Robles [place] [facility] 11/24/2023 13:21:53 Hep B, unspecified formulation 2 completed Ena LydiaMANUEL [place] [facility] 01/20/2018 14:24:59 Hep B, unspecified formulation 2 completed Enaludmila Darnellries [place] [facility] 01/20/2018 14:25:06 Hep B, unspecified formulation 2 completed Enaludmila Freeman [place] [facility] 01/20/2018 14:25:10 HPV, unspecified formulation 2 completed Ena Lydia [place] [facility] 01/20/2018 14:25:25 HPV, unspecified formulation 3 completed Ena Freeamn [place] [facility] 01/20/2018 14:25:31 MMR 3 completed Enaludmila Darnellries [place] [facility] 01/20/2018 14:25:47 MMR 7 completed Enaludmila Darnellries [place] [facility] 01/20/2018 14:25:52 meningococcal ACWY, unspecified formulation 3 completed Enaludmila Darnellries [place] [facility] 01/20/2018 14:26:12 pneumococcal, unspecified formulation 2 completed Enaludmila Darnellries [place] [facility] 01/20/2018 14:26:26 pneumococcal, unspecified formulation 2 completed Ean Darnellries [place] [facility] 01/20/2018 14:26:31 pneumococcal, unspecified formulation 2 completed Enaludmila Darnellries [place] [facility] 01/20/2018 14:26:37 pneumococcal, unspecified formulation 3 completed Ena Freeman [place] [facility] 01/20/2018 14:26:42 polio, unspecified formulation 2 completed MANUEL Ohara, [place] - [facility] 01/20/2018 14:26:55 polio, unspecified formulation 2 completed MANUEL Ohara, [place] [facility] 01/20/2018 14:26:59 polio, unspecified formulation 3 completed Ena Freeman MA null, [place] - [facility] 01/20/2018 14:27:04 polio, unspecified formulation 7 completed Ena Freeman MA null, [place] - [facility] 01/20/2018 14:27:08 Tdap 2 completed MANUEL Ohara, [place] - [facility] 01/20/2018 14:27:24 varicella 3 completed MANUEL Ohara, [place] - [facility] 01/20/2018 14:27:36 varicella 7 completed MANUEL Ohara, [place] - [facility] 01/20/2018 14:27:41 Past Encounters Encounter ID Performer Location Encounter Start Date Encounter Closed Date Diagnosis/Indication Diagnosis SNOMED-CT Code Diagnosis ICD10 Code Diagnosis Note [id number] Mandi Page MA [facility] [address] [place] [address] 08/23/2014 10:26:58 08/23/2014 11:04:34 Well child [id number] Zakia Farrar MA [facility] [address] [place] [address] 12/24/2014 16:41:12 12/24/2014 17:03:39 Prepatellar bursitis 34569614 [id number] RONAK Brooks [address] [place] [address] 10/08/2015 11:25:51 10/08/2015 14:47:45 Well child 617827491 Z00.790 [id number] RONAK Brooks [address] [place] [address] 09/25/2016 11:38:25 09/25/2016 16:52:04 Well child 393277247 Z00.357 [id number] Lucero Valenzuela PA-C [facility] [address] [place] [address] 09/30/2017 14:58:11 09/30/2017 15:51:10 Well child 195241265 Z00.861 [id number] Lucero Valenzuela PA-C [facility] [address] [place] [address] 10/18/2018 11:10:08 10/18/2018 12:47:40 Celiac disease 338573979 K90.0 Well child 852907719 Z00 .018 [id number] Lucero Valenzuela PA-C [facility] [address] [place] [address] 07/05/2020 14:52:57 07/09/2020 10:39:38 Celiac disease 946106332 K90.0 Requires h epatitis B booster 784908666 Z28.3 [id number] Lucero Valenzuela PA-C [facility] [address] [place] [address] 02/09/2022 11:50:10 02/09/2022 12:27:37 Adult health examination 523358912 Z00.00 [id number] Niki Robles MA [facility] [address] [place] [address] 03/10/2022 15:56:38 03/10/2022 16:58:34 Administration of diphtheria, pertussis, and tetanus vaccine 734510320 Z23 Health Concerns Section Related Observation LastModified by Organization Detai ls LastModified Time None Recorded Concern Status LastModified by Organization Details LastModified Time None Recorded Advance Directives Directive None Recorded Payers Encounter Date Sequence Insurance Name Policy Number Policy Brandt Covered Member ID Brandt Member ID Guarantor Name 09/30/2017 1 [facility] [id number] Karthik Wheeler [id number] Katelyn Wheeler 10/18/2018 1 *SELF PAY* Sarah sutherland Wheeler 07/05/2020 1 [facility] [id number] Liana Clarke [id number] Katelyn Wheeler 02/09/2022 1 [facility] [id number] Liana Clarke [id number] Katelyn Wheeler 03/10/2022 1 [facility] [id number] Liana Clarke [id number] Katelyn Wheeler Notes Date Note Type Note Provider Name and Address Organization Details Recorded Time 09/30/2017 text/html school pe... no complaints Lucero Valenzuela PA-C Attn: Accounting,[address] [facility], [place], [address], [facility] 09/30/2017 15:39:11 10/18/2018 text/html sports and schoo l physical. no health concerns. Lucero Valenzuela PA-C Attn: Accounting,[address] [facility], [place], [address], [facility] 10/18/2018 12:26:15 07/05/2020 text/html dr benítez at [facility] treats her celiac...ran a panel...was told was low on hep b level...wants her to have a booster..all else is well Lucero Valenzuela PA-C Attn: Accounting,[address] [facility], [place], [address], [facility] 07/05/2020 15:29:12 02/09/2022 text/html work phys no complaints Lucero Valenzuela PA-C Attn: Accounting,[address] [facility], [place], [address], [facility] 02/09/2022 12:23:11 OBGyn Episode No OBEpisode recorded.
--- OUTSIDE RECORDS SUMMARY | 2024-06-27 18:05 | XMS_ITS | Clinical Summary ---
Author Organization [facility] [employer] Address [address] [place] [address] Care Team Providers Care Bowling Ball Weigher And Packer Name Role Phone Aaron Gilliam MD Primary Care Provider [phone] Ritika Downey RN Unavailable Unavailable Source Comments [facility],non-owned Affiliates and Associated Physician Practices is amultiple site organization consisting of ambulatory clinics and hospital sitesin [place], [place], [place]. This disclosure is being madepursuant to the Care Everywhere program and may not contain all information available regarding this patient. Last updated 17.[facility] [employer] Allergies Active Allergy Reactions Criticality Noted Date Comments Shellfish Allergy Anaphylaxis High 02/29/2016 Social History Tobacco Use Types Packs/Day Years Used Date Smoking Tobacco: Never Sex and Gender Information Value Date Recorded Sex Assigned at Not on file Gender Identity Not on file Sexual Orientation Not on file Last Filed Vital Signs Vital Sign Reading Time Taken Comments Blood Pressure 127/74 02/16/2020 11:59 AM TOOLS PROGRAMMER Pulse 78 02/16/2020 11:59 AM TOOLS PROGRAMMER Temperature 37.1 C (98.7 F) 02/16/2020 11:43 AM TOOLS PROGRAMMER Respiratory Rate 16 02/16/2020 11:4 3 AM TOOLS PROGRAMMER Oxygen Saturation 100% 02/16/2020 11: 43 AM TOOLS PROGRAMMER Inhaled Oxygen Concentration - - Weight 60.2 kg (132 lb 11.2 oz) 020 11:43 AM TOOLS PROGRAMMER Height - - Body Mass Index - - Plan of Treatment Health Maintenance Due Date Last Done Comments PAP SMEAR 2001 HIV SCREENING 2016 HPV VACCINE (1 - 3-dose series) 2016 CHLAMYDIA/GONORRHEA SCREENING 2017 MENINGOCOCCAL (Group B) VACC INE SHARED DECISION-MAKING (1 of 2 - Standard) 2017 HEPATITIS C SCREENING 04/25/2019 DTAP/TDAP/TD VACCINES (1 - Tdap) 2020 HEPATITIS B VACCINE (1 of 3 - 19+ 3-dose series) 2020 COVID-19 VACCINE (1 - 2023-2 5 season) 2023 INFLUENZA VACCINE (#1) 2023 DEPRESSION SCREENING 04/12/2024 ZOSTER VACCINE (1 of 2) 2051 HIB VACCINE Aged Out No longer eligi ble based on patient's age to complete this topic MENINGOCOCCAL GROUPS A/C/Y/W VACCINE Aged Out No longer eligible b ased on patient's age to complete this topic PNEUMOCOCCAL VACCINE Aged Out No long er eligible based on patient's age to complete this topic Care Teams Bowling Ball Weigher And Packer Relationship Specialty Start Date End Date Aaron Gilliam MD [address] [place] [address] PCP - General Pediatrics 02/29/16 Ritika Downey, RN 02/27/20
--- OUTSIDE RECORDS SUMMARY | 2024-06-27 18:05 | XMS_ITS | Clinical Summary ---
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 Family History Medical History Relation Name Comments Anemia Other Anemia - Mom (A dded by TW Jerome) Relation Name Status Comments Other Social History Tobacco Use Types Packs/Day Years Used Date Smoking Tobacco: Never Tobacco Cessation:Counseling Given: Not Answered Personal Safety Answer Date Recorded Getting School Help Needed Not on file 05/01 Comments Unknown Sex and Gender Information Value Date Recorded Sex Assigned at Not on file Legal Sex Female 6:42 AM [employer]SEH[employer] CHOR[employer] Gender Identity Female 09/01/2019 4:33 PM CDT Sexual Orientation Straight 09/01/2019 4: 33 PM CDT Obstetrics History Last Filed Vital Signs Vital Sign Reading [...] 01/07/2023 8:16 AM CDT Plan of Treatment Health Maintenance Due Date Last Done Comments Cervical Cancer Screening 2001 Depression Screening 2001 Hepatitis C Screening 2001 Meningococcal B Vaccine (1 of 2 - Standard) 2017 Regular Well Visit/Exam 18-64 2019 DTaP/Tdap/Td Vaccine (7 - Td or Tdap) 08/24/2021 08/25/2011, 11/22/2006, 07/20/2002, Additional history exists Influenza Vaccine (#1) 2023 Hepatitis B Screening Completed 01/26/2002 , 2001, 2001 Pneumococcal vaccine <65 Aged Out 003, 01/26/2002, 2001, Additional history exists No longer eligible based on patient's age to complete this topic Varicella Vaccines Completed 11/22/2006, 07/20/2002 HPV Vaccines Completed 08/16/2012, 08/25/2011 Insurance [facility] [employer] OPEN ACCESS Advance Directives For more information, please contact: [phone] * Full Code (Latest Code Status on File) Date Activated Date Inactivated Comments 10/31/2017 12:50 AM 10/31/2017 5:59 PM Care Teams Core Shaper Relationship Specialty Start Date End Date Skye Shay DO PCP - General Family Medicine 08/25/21
== END 2024-06-27 17:23 | disposition home or self-care (01) ==
PROVIDERS: Emergency Provider Nurse Practitioner Family
DX: R30.0 Dysuria (principal); J45.909 Unspecified asthma, uncomplicated; K90.0 Celiac disease
CPT/HCPCS: 81003; 87086; 87186; 99213; G0463